=== PATIENT | female | born 1980 | race Caucasian/White ===

== ENCOUNTER 2018-04-10 13:17 | Emergency (ER) | payer SELFPAY ==
[2018-04-10] MEDS ORDERED: Sodium Chloride 0.9% 10 ML Syringe FLUSH PRN (14:04)
[2018-04-10] MEDS ORDERED: Ondansetron 4 MG/2 ML SDV IVPUSH ONE (14:05)
[2018-04-10] MEDS: Prochlorperazine 10 MG/2 ML SDV IV ONE (14:33)
[2018-04-10] MEDS: Lactated Ringers 1,000 ML IV ONE (14:33)
[2018-04-10] MEDS: Ketorolac 15 MG/ML SDV IVPUSH ONE (14:36)
[2018-04-10 15:06] LABS: CHLORIDE,CL 108 mmol/L (98-107); SODIUM,NA 143 mmol/L (136-145)
[2018-04-10 15:10] LABS: ANION GAP 14.6 mmol/L (10-20)
--- NOTE | 2018-04-10 18:37 | EDM.PDOC ---
ED HPI GENERAL MEDICAL PROBLEM - General Chief Complaint: Gastrointestinal Problem Stated Complaint: FEELING SICK Time Seen by Provider: 04/10/18 13:17 Source of Information: Reports: Patient History Limitations: Reports: No Limitations - History of Present Illness INITIAL COMMENTS - FREE TEXT/NARRATIVE: Pt. presents to ER with complaints of nausea, vomiting and diarrhea. She states that the vomiting has improved and she is able to hold down fluids. Pt. states that she has been sick for 1 week. No focal abdominal discomfort. No chest pain or shortness of breath. She has not recently been hospitalized. She has not recently been on antibiotics. No sick contacts. Denies any melena, hematochezia, or hemetemesis. She does complain of headache. No neck stiffness. Onset Date: 04/03/18 Duration: Constant Location: Reports: Abdomen, Generalized - Related Data Allergies Allergy/AdvReac Type Severity Reaction Status Date / Time No Known Allergies Allergy Verified 04/10/18 13:49 Home Meds: Home Meds . [No Known Home Meds] 04/10/18 [History] Past Medical History - Past Health History Medical/Surgical History: Denies Medical/Surgical History Social & Family History - Tobacco Use Smoking Status *Q: Current Every Day Smoker Years of Tobacco use: 16 Packs/Tins Daily: 0.5 - Recreational Drug Use Recreational Drug Use: No ED ROS GENERAL - Review of Systems Review Of Systems: See Below Constitutional: Reports: No Symptoms HEENT: Reports: No Symptoms Respiratory: Reports: No Symptoms Cardiovascular: Reports: No Symptoms Endocrine: Reports: No Symptoms GI/Abdominal: Reports: Anorexia, Diarrhea, Nausea, Vomiting : Reports: No Symptoms Musculoskeletal: Reports: No Symptoms Skin: Reports: No Symptoms Neurological: Reports: No Symptoms Psychiatric: Reports: No Symptoms Hematologic/Lymphatic: Reports: No Symptoms Immunologic: Reports: No Symptoms ED EXAM, GENERAL - Physical Exam Exam: See Below Exam Limited By: No Limitations General Appearance: Alert, WD/WN, No Apparent Distress Eye Exam: Bilateral Eye: EOMI, PERRL Throat/Mouth: Normal Inspection, Normal Lips, Normal Teeth, Normal Gums, Normal Oropharynx, Normal Voice, No Airway Compromise Head: Atraumatic, Normocephalic Neck: Normal Inspection, Supple, Non-Tender, Full Range of Motion Respiratory/Chest: No Respiratory Distress, Lungs Clear, Normal Breath Sounds, No Accessory Muscle Use, Chest Non-Tender Cardiovascular: Normal Peripheral Pulses, Regular Rate, Rhythm, No Edema, No Gallop, No JVD, No Murmur, No Rub Peripheral Pulses: 3+: Radial (L), Radial (R) GI/Abdominal: Normal Bowel Sounds, Soft, Non-Tender, No Organomegaly, No Distention, No Mass (Female) Exam: Deferred Rectal (Female) Exam: Deferred Back Exam: Normal Inspection, Full Range of Motion, NT Extremities: Normal Inspection, Normal Range of Motion, Non-Tender, Normal Capillary Refill, No Pedal Edema Neurological: Alert, Oriented, CN II-XII Intact, Normal Cognition, Normal Gait, Normal Reflexes, No Motor/Sensory Deficits Psychiatric: Normal Affect, Normal Mood Skin Exam: Pallor Course - Vital Signs Last Recorded V/S: Last Vital Signs Temp 36.1 C 04/10/18 13:25 Pulse 75 04/10/18 13:25 Resp 14 04/10/18 13:25 BP 116/73 04/10/18 13:25 Pulse Ox 97 04/10/18 13:25 - Orders/Labs/Meds Orders: Active Orders 24 hr Category Date Time Status Peripheral IV Insertion Adult [OM.PC] Routine Oth 04/10/18 14:05 Ordered Labs: Laboratory Tests 04/10/18 04/10/18 04/10/18 Range/Units 14:15 14:15 14:25 WBC 7.5 (4.0-10.0) x10^3/uL RBC 5.26 (4.00-5.50) x10^6/uL Hgb 12.7 (12.0-16.0) g/dL Hct 40.3 (33.0-47.0) % MCV 76.6 L (78.0-93.0) fL MCH 24.1 L (26.0-32.0) pg MCHC 31.5 L (32.0-36.0) g/dL RDW Coeff of April 16.0 H (10.0-15.0) % Plt Count 282 (130-400) x10^3/uL Neut % (Auto) 55.5 (50.0-80.0) % Lymph % (Auto) 33.2 (25.0-50.0) % [place] % (Auto) 8.7 (2.0-11.0) % Eos % (Auto) 1.9 (0.0-4.0) % Baso % (Auto) 0.7 (0.2-1.2) % PT 11.4 (9.6-11.4) SEC INR 1.1 L (2.0-3.5) Sodium 143 (136-145) mmol/L Potassium 3.6 (3.5-5.1) mmol/L Chloride 108 H (98-107) mmol/L Carbon Dioxide 24 (21-32) mmol/L Anion Gap 14.6 (10-20) mmol/L BUN 10 (7-18) mg/dL Creatinine 0.7 (0.55-1.02) mg/dL Est Cr Clr Drug Dosing TNP Estimated GFR (MDRD) > 60 Glucose 76 (74-106) mg/dL Calcium 9.1 (8.5-10.1) mg/dL Corrected Calcium 9.34 (8.5-10.1) mg/dL Total Bilirubin 0.7 (0.2-1.0) mg/dL AST 18 (15-37) U/L ALT 21 (14-59) U/L Alkaline Phosphatase 112 (46-116) U/L C-Reactive Protein 2.3 H (<=0.9) mg/dL Total Protein 7.9 (6.4-8.2) g/dL Albumin 3.7 (3.4-5.0) g/dL Globulin 4.2 Albumin/Globulin Ratio 0.88 Urine Color (YELLOW) Urine Appearance (CLEAR) Urine pH (5.0-8.0) Ur Specific [place] Urine Protein (NEGATIVE) mg/dL Urine Glucose (UA) (NEGATIVE) mg/dL Urine Ketones (NEGATIVE) mg/dL Urine Occult Blood (NEGATIVE) Urine Nitrite (NEGATIVE) Urine Bilirubin (NEGATIVE) Urine Urobilinogen (0.2) EU/dL Ur Leukocyte Esterase (NEGATIVE) Urine RBC (NOT SEEN) /HPF Urine WBC (NOT SEEN) /HPF Ur Squamous Epith Cells (NEGATIVE) /HPF Amorphous Sediment Urine Bacteria (NEGATIVE) /HPF Urine Mucus (NEGATIVE) /LPF POC Urine HCG, Qual (NEGATIVE) 04/10/18 04/10/18 Range/Units 14:40 14:40 WBC (4.0-10.0) x10^3/uL RBC (4.00-5.50) x10^6/uL Hgb (12.0-16.0) g/dL Hct (33.0-47.0) % MCV (78.0-93.0) fL MCH (26.0-32.0) pg MCHC (32.0-36.0) g/dL RDW Coeff of April (10.0-15.0) % Plt Count (130-400) x10^3/uL Neut % (Auto) (50.0-80.0) % Lymph % (Auto) (25.0-50.0) % [place] % (Auto) (2.0-11.0) % Eos % (Auto) (0.0-4.0) % Baso % (Auto) (0.2-1.2) % PT (9.6-11.4) SEC INR (2.0-3.5) Sodium (136-145) mmol/L Potassium (3.5-5.1) mmol/L Chloride (98-107) mmol/L Carbon Dioxide (21-32) mmol/L Anion Gap (10-20) mmol/L BUN (7-18) mg/dL Creatinine (0.55-1.02) mg/dL Est Cr Clr Drug Dosing Estimated GFR (MDRD) Glucose (74-106) mg/dL Calcium (8.5-10.1) mg/dL Corrected Calcium (8.5-10.1) mg/dL Total Bilirubin (0.2-1.0) mg/dL AST (15-37) U/L ALT (14-59) U/L Alkaline Phosphatase (46-116) U/L C-Reactive Protein (<=0.9) mg/dL Total Protein (6.4-8.2) g/dL Albumin (3.4-5.0) g/dL Globulin Albumin/Globulin Ratio Urine Color Dark yellow H (YELLOW) Urine Appearance Cloudy H (CLEAR) Urine pH 5.5 (5.0-8.0) Ur Specific [place] >=1.030 Urine Protein Negative (NEGATIVE) mg/dL Urine Glucose (UA) Negative (NEGATIVE) mg/dL Urine Ketones Trace H (NEGATIVE) mg/dL Urine Occult Blood Small H (NEGATIVE) Urine Nitrite Negative (NEGATIVE) Urine Bilirubin Negative (NEGATIVE) Urine Urobilinogen 0.2 (0.2) EU/dL Ur Leukocyte Esterase Negative (NEGATIVE) Urine RBC 0-5 (NOT SEEN) /HPF Urine WBC 0-5 (NOT SEEN) /HPF Ur Squamous Epith Cells Moderate H (NEGATIVE) /HPF Amorphous Sediment Few Urine Bacteria Moderate H (NEGATIVE) /HPF Urine Mucus Many H (NEGATIVE) /LPF POC Urine HCG, Qual Negative (NEGATIVE) Meds: Medications Discontinued Medications Generic Name Dose Route Start Last Admin Trade Name Freq PRN Reason Stop Dose Admin Lactated Ringer's 1,000 mls @ 1,000 mls/hr 04/10/18 14:05 04/10/18 14:33 Ringers, Lactated IV 04/10/18 15:04 1,000 mls/hr ONETIME ONE Administration Ketorolac Tromethamine 15 mg 04/10/18 14:06 04/10/18 14:36 Toradol IVPUSH 04/10/18 14:07 15 mg ONETIME ONE Administration Prochlorperazine Edisylate 5 mg 04/10/18 14:06 04/10/18 14:33 Compazine IV 04/10/18 14:07 5 mg ONETIME ONE Administration Sodium Chloride 10 ml 04/10/18 14:04 Saline Flush FLUSH ASDIRECTED PRN Keep Vein Open - Re-Assessments/Exams Free Text/Narrative Re-Assessment/Exam: IV access achieved with great difficulty on 3rd attempt. She was given her Compazine, toradol and approx. 100ml of fluid and the IV infiltrated. Since she was able to hold fluids down, it was not restarted and she will hydrate orally. Departure - Departure Time of Disposition: 15:24 Disposition: Home, Self-Care 01 Clinical Impression: Gastroenteritis - Discharge Information Instructions: Viral Gastroenteritis, Adult, [id number] Referrals: PCP,None [Primary Care Provider] - Forms: ED Department Discharge Additional Instructions: Home to rest. Zofran 4mg ODT 1 tablet every 6 hours as needed for nausea. Only clear liquid for the next 24 hours. Start banana, rice, apples and toast starting tomorrow. Follow-up in clinic in 7-10 days. - My Orders Last 24 Hours: My Active Orders 04/10/18 14:05 Peripheral IV Insertion Adult [OM.PC] Routine - Assessment/Plan Last 24 Hours: My Active Orders 04/10/18 14:05 Peripheral IV Insertion Adult [OM.PC] Routine Plan: Home to rest. Zofran 4mg ODT 1 tablet every 6 hours as needed for nausea. Only clear liquid for the next 24 hours. Start banana, rice, apples and toast starting tomorrow. Follow-up in clinic in 7-10 days. Return to ER if unable to hold down fluids.
== END 2018-04-10 15:24 | disposition home or self-care (01) ==
LOC: VM.ED 13:17
DX: K52.9 Noninfective gastroenteritis and colitis, unspecified (principal); F17.210 Nicotine dependence, cigarettes, uncomplicated
CPT/HCPCS: 36415; 80053; 81001; 81025; 85025; 85610; 86140; 96374; 96375; 99284; J0780; J1885; J7120

== ENCOUNTER 2018-05-13 12:08 | Emergency (ER) | payer BC, OTHER ==
--- NOTE | 2018-05-13 13:22 | CT ---
[id number] CT/CT Head WO IV EXAM: NONCONTRAST HEAD CT INDICATION: Head injury 2 days ago, headache, vertigo and nausea. COMPARISON: None. DISCUSSION: The ventricles and sulci are normal in size and configuration. The bonds and white matter are normal in attenuation. No mass effect or midline shift. No acute hemorrhage or extra-axial fluid collection. No acute territorial infarct is identified. Small volume fluid and focal mucosal thickening in the dependent aspect of both maxillary sinuses. IMPRESSION: 1. No evidence of acute intracranial trauma. Cesar Dunne MD 05/13/18 1972 Thank you for allowing us to participate in the care of your patient.
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
== END 2018-05-13 13:45 | disposition home or self-care (01) ==
LOC: VM.ED 12:08
DX: S06.0X0A Concussion without loss of consciousness, initial encounter (principal); F17.210 Nicotine dependence, cigarettes, uncomplicated; W22.8XXA Striking against or struck by other objects, initial encounter
CPT/HCPCS: 70450; 99283-25

== ENCOUNTER 2018-12-26 02:12 | Emergency (ER) | payer BC ==
--- NOTE | 2018-12-26 02:24 | EDM.PDOC ---
ED HPI GENERAL MEDICAL PROBLEM - General Chief Complaint: Skin Complaint Stated Complaint: itching Time Seen by Provider: 12/26/18 02:22 Source of Information: Reports: Patient, RN, RN Notes Reviewed History Limitations: Reports: No Limitations - History of Present Illness INITIAL COMMENTS - FREE TEXT/NARRATIVE: Patient present to the ED at [facility] concerned about exposure to Shingles. 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 Patient has had the Varicella vaccine was well as chicken pox. She states she has felt itchy all over but no painful lesions. No fevers. No open sores or blisters. Onset: Today - Related Data Allergies Allergy/AdvReac Type Severity Reaction Status Date / Time ivory soap Allergy Itching Uncoded 12/26/18 02:14 Home Meds: Home Meds hydrOXYzine HCl [Atarax] 25 mg PO TID PRN 12/26/18 [History] Past Medical History - Past Health History Medical/Surgical History: Denies Medical/Surgical History Psychiatric History: Reports: Anxiety, Depression - Past Surgical History Female Surgical History: Reports: Section Social & Family History - Tobacco Use Smoking Status *Q: Current Every Day Smoker Years of Tobacco use: 9 Packs/Tins Daily: 0.5 - Recreational Drug Use Recreational Drug Use: No ED ROS GENERAL - Review of Systems Review Of Systems: See Below Constitutional: Denies: Fever, Weakness Respiratory: Denies: Shortness of Breath, Cough Cardiovascular: Denies: Chest Pain, Palpitations Skin: Reports: Pruritis Neurological: Reports: No Symptoms ED EXAM, SKIN/RASH Exam: See Below Exam Limited By: No Limitations General Appearance: Alert, No Apparent Distress Respiratory/Chest: No Respiratory Distress, Lungs Clear, Normal Breath Sounds Cardiovascular: Normal Peripheral Pulses, Regular Rate, Rhythm GI/Abdominal: Normal Bowel Sounds, Soft, Non-Tender Neurological: Alert, Oriented Skin: Warm, Dry, Intact, Normal Color, No Rash Course - Vital Signs Last Recorded V/S: Last Vital Signs Temp 95.6 F 12/26/18 02:12 Pulse 62 12/26/18 02:12 Resp 16 12/26/18 02:12 BP 115/77 12/26/18 02:12 Pulse Ox 100 12/26/18 02:12 Departure - Departure Time of Disposition: 02:32 Disposition: Home, Self-Care 01 Condition: Good Clinical Impression: Physically well but worried - Discharge Information *PRESCRIPTION DRUG MONITORING PROGRAM REVIEWED*: Not Applicable *COPY OF PRESCRIPTION DRUG MONITORING REPORT IN PATIENT RONNA: Not Applicable Instructions: Shingles Forms: ED Department Discharge - Problem List Review Problem List Initiated/Reviewed/Updated: Yes - Assessment/Plan Assessment:: Worried well Plan: Discussed with patient what shingles really is and what to assess for. Patient does not have any risk factors or evidence of current shingles.
== END 2018-12-26 02:37 | disposition home or self-care (01) ==
LOC: VM.ED 02:12
DX: Z71.1 Person with feared health complaint in whom no diagnosis is made (principal); F41.9 Anxiety disorder, unspecified; F32.9 Major depressive disorder, single episode, unspecified; F17.210 Nicotine dependence, cigarettes, uncomplicated; Z79.899 Other long term (current) drug therapy; Z91.048 Other nonmedicinal substance allergy status
CPT/HCPCS: 99282

== ENCOUNTER 2019-03-21 13:45 | Emergency (ER) | payer BC ==
[2019-03-21] MEDS ORDERED: Sodium Chloride 0.9% 10 ML Syringe FLUSH PRN (14:15)
[2019-03-21] MEDS ORDERED: Ondansetron 4 MG/2 ML SDV IVPUSH ONE (14:16)
[2019-03-21] MEDS ORDERED: Sodium Chloride 0.9% 1,000 ML IV ONE (14:16)
[2019-03-21 15:06] LABS: CHLORIDE,CL 106 mmol/L (98-107); SODIUM,NA 144 mmol/L (136-145)
[2019-03-21 15:07] LABS: ANION GAP 16.8 mmol/L (10-20)
[2019-03-21] MEDS ORDERED: Take Home: Ondansetron 4 MG Tab.DIS, 2 Tab Pack PO ONE (15:20)
--- NOTE | 2019-03-22 11:46 | EDM.PDOC ---
ED HPI GENERAL MEDICAL PROBLEM - General Chief Complaint: Gastrointestinal Problem Stated Complaint: NAUSEA Time Seen by Provider: 03/21/19 14:00 Source of Information: Reports: Patient History Limitations: Reports: No Limitations - History of Present Illness INITIAL COMMENTS - FREE TEXT/NARRATIVE: Pt. presents to ER with complaints of nausea and diarrhea for several days. She also complains of abdominal cramping. Denies any blood in her stools. Pt. states that she has been around numerous sick contacts. Pt. denies any chest pain or shortness of breath. Complains of mild lightheadedness. No fever or chills. Denies any flank pain or dysuria. Onset: Today Onset Date: 03/30/19 Associated Symptoms: Reports: Nausea/Vomiting, Other (diarrhea) Lower Abdominal Pain Score (Numeric/FACES): 7 - Related Data Allergies Allergy/AdvReac Type Severity Reaction Status Date / Time ivory soap Allergy Itching Uncoded 03/21/19 16:03 Home Meds: Home Meds hydrOXYzine HCL [Atarax] 25 mg PO TID PRN 12/26/18 [History] Past Medical History - Past Health History Medical/Surgical History: Denies Medical/Surgical History Psychiatric History: Reports: Anxiety, Depression - Past Surgical History Female Surgical History: Reports: Section Social & Family History - Tobacco Use Smoking Status *Q: Current Every Day Smoker Years of Tobacco use: 10 Packs/Tins Daily: 1 - Recreational Drug Use Recreational Drug Use: Yes Drug Use in Last 12 Months: No Recreational Drug Type: Reports: Methamphetamine ED ROS GENERAL - Review of Systems Review Of Systems: See Below Constitutional: Reports: No Symptoms HEENT: Reports: No Symptoms Respiratory: Reports: No Symptoms Cardiovascular: Reports: No Symptoms Endocrine: Reports: No Symptoms GI/Abdominal: Reports: Diarrhea, Nausea, Vomiting. Denies: Abdominal Pain : Reports: No Symptoms Musculoskeletal: Reports: No Symptoms Skin: Reports: No Symptoms Neurological: Reports: No Symptoms Psychiatric: Reports: No Symptoms Hematologic/Lymphatic: Reports: No Symptoms Immunologic: Reports: No Symptoms ED EXAM, GENERAL - Physical Exam Exam: See Below Exam Limited By: No Limitations General Appearance: Alert, WD/WN, No Apparent Distress Eye Exam: Bilateral Eye: EOMI, PERRL Ears: Normal External Exam, Normal Canal, Hearing Grossly Normal, Normal TMs Ear Exam: Bilateral Ear: Auricle Normal, Canal Normal, TM normal Nose: Normal Inspection, Normal Mucosa, No Blood Throat/Mouth: Normal Inspection, Normal Lips, Normal Teeth, Normal Gums, Normal Oropharynx, Normal Voice, No Airway Compromise Head: Atraumatic, Normocephalic Neck: Normal Inspection, Supple, Non-Tender, Full Range of Motion Respiratory/Chest: No Respiratory Distress, Lungs Clear, Normal Breath Sounds, No Accessory Muscle Use, Chest Non-Tender Cardiovascular: Normal Peripheral Pulses, Regular Rate, Rhythm, No Edema, No Gallop, No JVD, No Murmur, No Rub GI/Abdominal: Normal Bowel Sounds, Soft, Non-Tender, No Organomegaly, No Distention, No Abnormal Bruit, No Mass (Female) Exam: Deferred Rectal (Female) Exam: Deferred Back Exam: Normal Inspection, Full Range of Motion. No: CVA Tenderness (L), CVA Tenderness (R) Extremities: Normal Inspection, Normal Range of Motion, No Pedal Edema, Normal Capillary Refill Neurological: Alert, Oriented, CN II-XII Intact, Normal Cognition, Normal Gait, Normal Reflexes, No Motor/Sensory Deficits Psychiatric: Normal Affect, Normal Mood Skin Exam: Warm, Dry, Intact, Normal Color, No Rash Lymphatic: No Adenopathy Course - Vital Signs Last Recorded V/S: Last Vital Signs Temp 36.8 C 03/21/19 14:00 Pulse 75 03/21/19 14:00 Resp 16 03/21/19 14:00 BP 120/61 03/21/19 14:00 Pulse Ox 98 03/21/19 14:00 - Orders/Labs/Meds Labs: Laboratory Tests 03/21/19 03/21/19 03/21/19 Range/Units 14:33 14:33 14:33 WBC 5.8 (4.0-10.0) x10^3/uL RBC 4.72 (4.00-5.50) x10^6/uL Hgb 12.5 (12.0-16.0) g/dL Hct 37.9 (33.0-47.0) % MCV 80.3 D (78.0-93.0) fL MCH 26.5 (26.0-32.0) pg MCHC 33.0 (32.0-36.0) g/dL RDW Coeff of April 13.4 (10.0-15.0) % Plt Count 254 (130-400) x10^3/uL Neut % (Auto) 57.5 (50.0-80.0) % Lymph % (Auto) 32.6 (25.0-50.0) % [place] % (Auto) 7.8 (2.0-11.0) % Eos % (Auto) 1.6 (0.0-4.0) % Baso % (Auto) 0.5 (0.2-1.2) % PT 11.0 (10.0-12.8) SEC INR 1.0 L (2.0-3.5) Sodium 144 (136-145) mmol/L Potassium 3.8 (3.5-5.1) mmol/L Chloride 106 (98-107) mmol/L Carbon Dioxide 25 (21-32) mmol/L Anion Gap 16.8 (10-20) mmol/L BUN 10 (7-18) mg/dL Creatinine 0.6 (0.55-1.02) mg/dL Est Cr Clr Drug Dosing 111.93 mL/min Estimated GFR (MDRD) > 60 Glucose 93 (74-106) mg/dL Calcium 9.2 (8.5-10.1) mg/dL Corrected Calcium 9.52 (8.5-10.1) mg/dL Magnesium 2.1 (1.8-2.4) mg/dL Total Bilirubin 0.3 (0.2-1.0) mg/dL AST 12 L (15-37) U/L ALT 19 (14-59) U/L Alkaline Phosphatase 88 (46-116) U/L C-Reactive Protein 0.7 (<=0.9) mg/dL Total Protein 7.4 (6.4-8.2) g/dL Albumin 3.6 (3.4-5.0) g/dL Globulin 3.8 Albumin/Globulin Ratio 0.95 Urine Color (YELLOW) Urine Appearance (CLEAR) Urine pH (5.0-8.0) Ur Specific [place] Urine Protein (NEGATIVE) mg/dL Urine Glucose (UA) (NEGATIVE) mg/dL Urine Ketones (NEGATIVE) mg/dL Urine Occult Blood (NEGATIVE) Urine Nitrite (NEGATIVE) Urine Bilirubin (NEGATIVE) Urine Urobilinogen (0.2) EU/dL Ur Leukocyte Esterase (NEGATIVE) Urine RBC (NOT SEEN) /HPF Urine WBC (NOT SEEN) /HPF Ur Squamous Epith Cells (NEGATIVE) /HPF Amorphous Sediment Urine Bacteria (NEGATIVE) /HPF Urine Mucus (NEGATIVE) /LPF 03/21/19 Range/Units 14:52 WBC (4.0-10.0) x10^3/uL RBC (4.00-5.50) x10^6/uL Hgb (12.0-16.0) g/dL Hct (33.0-47.0) % MCV (78.0-93.0) fL MCH (26.0-32.0) pg MCHC (32.0-36.0) g/dL RDW Coeff of April (10.0-15.0) % Plt Count (130-400) x10^3/uL Neut % (Auto) (50.0-80.0) % Lymph % (Auto) (25.0-50.0) % [place] % (Auto) (2.0-11.0) % Eos % (Auto) (0.0-4.0) % Baso % (Auto) (0.2-1.2) % PT (10.0-12.8) SEC INR (2.0-3.5) Sodium (136-145) mmol/L Potassium (3.5-5.1) mmol/L Chloride (98-107) mmol/L Carbon Dioxide (21-32) mmol/L Anion Gap (10-20) mmol/L BUN (7-18) mg/dL Creatinine (0.55-1.02) mg/dL Est Cr Clr Drug Dosing mL/min Estimated GFR (MDRD) Glucose (74-106) mg/dL Calcium (8.5-10.1) mg/dL Corrected Calcium (8.5-10.1) mg/dL Magnesium (1.8-2.4) mg/dL Total Bilirubin (0.2-1.0) mg/dL AST (15-37) U/L ALT (14-59) U/L Alkaline Phosphatase (46-116) U/L C-Reactive Protein (<=0.9) mg/dL Total Protein (6.4-8.2) g/dL Albumin (3.4-5.0) g/dL Globulin Albumin/Globulin Ratio Urine Color Yellow (YELLOW) Urine Appearance Slightly cloudy H (CLEAR) Urine pH 5.5 (5.0-8.0) Ur Specific [place] >=1.030 Urine Protein Negative (NEGATIVE) mg/dL Urine Glucose (UA) Negative (NEGATIVE) mg/dL Urine Ketones Negative (NEGATIVE) mg/dL Urine Occult Blood Moderate H (NEGATIVE) Urine Nitrite Negative (NEGATIVE) Urine Bilirubin Negative (NEGATIVE) Urine Urobilinogen 0.2 (0.2) EU/dL Ur Leukocyte Esterase Negative (NEGATIVE) Urine RBC 5-10 H (NOT SEEN) /HPF Urine WBC 0-5 (NOT SEEN) /HPF Ur Squamous Epith Cells Moderate H (NEGATIVE) /HPF Amorphous Sediment Few Urine Bacteria Rare (NEGATIVE) /HPF Urine Mucus Few H (NEGATIVE) /LPF Meds: Medications Discontinued Medications Generic Name Dose Route Start Last Admin Trade Name Freq PRN Reason Stop Dose Admin Sodium Chloride 1,000 mls @ 1,000 mls/hr 03/21/19 14:16 03/21/19 14:48 Normal Saline IV 03/21/19 15:15 1,000 mls/hr .BOLUS ONE Administration Ondansetron HCl 4 mg 03/21/19 14:16 03/21/19 14:49 Zofran IVPUSH 03/21/19 14:17 4 mg ONETIME ONE Administration Ondansetron HCl 2 packet 03/21/19 15:20 03/21/19 15:48 Take Home: Ondansetron Odt 4 Mg, 2 Tab Pack PO 03/21/19 15:21 2 packet ONETIME ONE Administration Sodium Chloride 10 ml 03/21/19 14:15 Saline Flush FLUSH ASDIRECTED PRN Keep Vein Open Departure - Departure Time of Disposition: 16:00 Disposition: Home, Self-Care 01 Condition: Good Clinical Impression: Gastroenteritis - Discharge Information Instructions: Loperamide tablets or capsules, Ondansetron tablets, Viral Gastroenteritis, Adult, [id number] Referrals: Bladimir Schaeffer NP [Primary Care Provider] - Forms: ED Department Discharge Additional Instructions: Home to rest. Zofran 4mg ODT 1 tab every 4-6 hours as needed for nausea/vomiting Loperamide (immodium) 1 tab every 4-6 hours for diarrhea. Drink only clear liquids until tomorrow at noon, then you can start eating bland foods like bananas, toast, apples, rice, etc. Off of work until asymptomatic for 24 hours. Sepsis Event Note - Evaluation Sepsis Screening Result: No Definite Risk - Focused Exam Date Exam was Performed: 03/30/19 Time Exam was Performed: 05:56 - Assessment/Plan Plan: Home to rest. Zofran 4mg ODT 1 tab every 4-6 hours as needed for nausea/vomiting Loperamide (immodium) 1 tab every 4-6 hours for diarrhea. Drink only clear liquids until tomorrow at noon, then you can start eating bland foods like bananas, toast, apples, rice, etc. Off of work until asymptomatic for 24 hours.
== END 2019-03-21 16:00 | disposition home or self-care (01) ==
LOC: VM.ED 13:45
DX: K52.9 Noninfective gastroenteritis and colitis, unspecified (principal); F17.210 Nicotine dependence, cigarettes, uncomplicated; Z91.09 Other allergy status, other than to drugs and biological substances
CPT/HCPCS: 36415; 80053; 81001; 83735; 85025; 85610; 86140; 96361; 96374; 99284; A9270; J2405; J7030

== ENCOUNTER 2019-12-16 13:44 | Emergency (ER) | payer OTHER ==
[2019-12-16] MEDS ORDERED: Sodium Chloride 0.9% 10 ML Syringe FLUSH PRN (13:56)
[2019-12-16] MEDS ORDERED: Sodium Chloride 0.9% 1,000 ML IV ONE (14:31)
[2019-12-16] MEDS ORDERED: Ondansetron 4 MG/2 ML SDV IVPUSH ONE (14:31)
[2019-12-16] MEDS ORDERED: fentaNYL 100 MCG/2 ML SDV IVPUSH ONE (14:31)
--- NOTE | 2019-12-16 14:38 | EDM.PDOC ---
ED HPI GENERAL MEDICAL PROBLEM - General Chief Complaint: Gastrointestinal Problem Stated Complaint: DIARRHEA,SORE THROAT Time Seen by Provider: 12/16/19 13:56 - History of Present Illness INITIAL COMMENTS - FREE TEXT/NARRATIVE: Gloria is a 39 y/o female who comes to the ER today with epigastic and midsternal chest pain. She also reports being very nauseated and she has vomited 5 times today along with several diarrhea stools. She reports that she first felt ill on Saturday and went to the [facility] on Saturday and was given Omeprazole and Zofran. She denies that they have helped any of her sx. She rates her pain 8/10 and points to the midsternal chest region as being the worst. "I feel like my chest and stomach are being ripped out and this is worse than labor." When she was first ill she did have some nasal congestion and URI sx, but that has seemed to resolve. She was COVID tested on the 12/08 and it was negative. Abdominal Pain Score (Numeric/FACES): 9 - Related Data Allergies Allergy/AdvReac Type Severity Reaction Status Date / Time ivory soap Allergy Itching Uncoded 12/16/19 14:04 Home Meds: Home Meds hydrOXYzine HCL [Atarax] 25 mg PO TID PRN 12/26/18 [History] Ondansetron [Zofran] 4 mg PO Q8H PRN 12/16/19 [History] Pantoprazole Sodium [Protonix] 40 mg PO DAILY 12/16/19 [History] Past Medical History - Past Health History Medical/Surgical History: Denies Medical/Surgical History Psychiatric History: Reports: Anxiety, Depression - Past Surgical History Female Surgical History: Reports: Section Social & Family History - Tobacco Use Smoking Status *Q: Current Every Day Smoker Years of Tobacco use: 20 Packs/Tins Daily: 1 Review of Systems - Review of Systems Review Of Systems: See Below Constitutional: Reports: Weakness Eyes: Reports: No Symptoms Ears: Reports: No Symptoms Nose: Reports: Congestion Mouth/Throat: Reports: Other (Sore Throat) Respiratory: Reports: No Symptoms Cardiovascular: Reports: Chest Pain GI/Abdominal: Reports: Abdominal Pain, Decreased Appetite, Diarrhea, Nausea, Vomiting Genitourinary: Reports: No Symptoms Musculoskeletal: Reports: No Symptoms Skin: Reports: No Symptoms Neurological: Reports: Headache Psychiatric: Reports: No Symptoms ED EXAM, GENERAL - Physical Exam Exam: See Below General Appearance: Alert, WD/WN (Adult female, appears to not feel well) Eye Exam: Bilateral Eye: PERRL Ears: Normal External Exam, Normal Canal, Hearing Grossly Normal, Normal TMs Nose: Normal Inspection Throat/Mouth: Normal Inspection, Normal Lips, Normal Teeth, Normal Voice, No Airway Compromise Head: Atraumatic, Normocephalic Neck: Normal Inspection, Supple Respiratory/Chest: No Respiratory Distress, Lungs Clear, Other (+Reproducible pain in the midsternal region) Cardiovascular: Normal Peripheral Pulses, Regular Rate, Rhythm, No Murmur GI/Abdominal: Normal Bowel Sounds, Soft, Tender (+tender in the epigastric and RUQ region) (Female) Exam: Deferred Rectal (Female) Exam: Deferred Back Exam: CVA Tenderness (R) (mild) Extremities: Normal Inspection, Normal Range of Motion, Normal Capillary Refill Neurological: Alert, Oriented, CN II-XII Intact, Normal Cognition, Normal Gait, No Motor/Sensory Deficits Psychiatric: Normal Affect, Normal Mood Skin Exam: Warm, Dry, Intact, Normal Color Lymphatic: No Adenopathy EKG INTERPRETATION EKG Date: 12/16/19 Time: 14:30 Rhythm: NSR Rate (Beats/Min): 63 [place]: Normal P-Wave: Present QRS: Normal ST-T: Normal QT: Normal Course - Vital Signs Text/Narrative:: 1356 The patient was seen by the [employer]. COVID test ordered initially and was negative. Additional labs adn EKG ordered. She was given a liter of NS, Fentanyl 100mcg IVP, and Zofran 4 mg IVP. 1505 Labs reviewed, CBC neg, CMP neg, UA trace blood-intact otherwise negative. 1640 Still having mild epigastric pain, but able to rest. Declines GI cocktail when offered. CT reviewed, no renal calculi noted, possible colitis (See Radiology report). Will have patient go home and resume Zofran and Protonix as prescribed by her PCP then have her follow up in clinic for further testing and referrals. Discharge instructions were given and the patient left the ER in stable condition. Last Recorded V/S: Last Vital Signs Temp 36.7 C 12/16/19 13:50 Pulse 76 09/16/20 13:50 Resp 18 12/16/19 13:50 BP 117/68 12/16/19 13:50 Pulse Ox 98 12/16/19 13:50 - Orders/Labs/Meds Orders: Active Orders 24 hr Category Date Time Status EKG Documentation Completion [RC] STAT Care 12/16/19 14:32 Active Sodium Chloride 0.9% [Saline Flush] Med 12/16/19 13:56 Active 10 ml FLUSH ASDIRECTED PRN Saline Lock Insert [OM.PC] Stat Oth 12/16/19 13:57 Ordered Medication Orders Sodium Chloride (Saline Flush) 10 ml FLUSH ASDIRECTED PRN PRN Reason: Keep Vein Open Labs: Laboratory Tests 12/16/19 12/16/19 12/16/19 Range/Units 13:56 14:23 14:23 WBC 7.2 (4.0-10.0) x10^3/uL RBC 4.95 (4.00-5.50) x10^6/uL Hgb 13.0 (12.0-16.0) g/dL Hct 39.4 (33.0-47.0) % MCV 79.6 (78.0-93.0) fL MCH 26.3 (26.0-32.0) pg MCHC 33.0 (32.0-36.0) g/dL RDW Coeff of April 14.6 (10.0-15.0) % Plt Count 303 (130-400) x10^3/uL Neut % (Auto) 67.4 (50.0-80.0) % Lymph % (Auto) 26.6 (25.0-50.0) % [place] % (Auto) 4.8 (2.0-11.0) % Eos % (Auto) 0.8 (0.0-4.0) % Baso % (Auto) 0.4 (0.2-1.2) % Sodium 140 (136-145) mmol/L Potassium 4.2 (3.5-5.1) mmol/L Chloride 103 (98-107) mmol/L Carbon Dioxide 29 (21-32) mmol/L Anion Gap 12.2 (10-20) mmol/L BUN 12 (7-18) mg/dL Creatinine 0.7 (0.55-1.02) mg/dL Est Cr Clr Drug Dosing TNP Estimated GFR (MDRD) > 60 Glucose 94 (74-106) mg/dL Calcium 9.2 (8.5-10.1) mg/dL Corrected Calcium 9.12 (8.5-10.1) mg/dL Magnesium 2.0 (1.8-2.4) mg/dL Total Bilirubin 0.4 (0.2-1.0) mg/dL AST 12 L (15-37) U/L ALT 23 (14-59) U/L Alkaline Phosphatase 87 (46-116) U/L Troponin I (<=0.056) ng/mL Total Protein 8.4 H (6.4-8.2) g/dL Albumin 4.1 (3.4-5.0) g/dL Globulin 4.3 Albumin/Globulin Ratio 0.95 Amylase 42 (25-115) U/L Lipase 109 (73-393) U/L Urine Color (YELLOW) Urine Appearance (CLEAR) Urine pH (5.0-8.0) Ur Specific [place] Urine Protein (NEGATIVE) mg/dL Urine Glucose (UA) (NEGATIVE) mg/dL Urine Ketones (NEGATIVE) mg/dL Urine Occult Blood (NEGATIVE) Urine Nitrite (NEGATIVE) Urine Bilirubin (NEGATIVE) Urine Urobilinogen (0.2) EU/dL Ur Leukocyte Esterase (NEGATIVE) Urine RBC (NOT SEEN) /HPF Urine WBC (NOT SEEN) /HPF Ur Squamous Epith Cells (NEGATIVE) /HPF Urine Bacteria (NEGATIVE) /HPF Urine Mucus (NEGATIVE) /LPF Urine HCG, Qual (NEGATIVE) SARS CoV-2 RNA Rapid ROSY Negative (NEGATIVE) 12/16/19 12/16/19 12/16/19 Range/Units 14:23 14:39 14:39 WBC (4.0-10.0) x10^3/uL RBC (4.00-5.50) x10^6/uL Hgb (12.0-16.0) g/dL Hct (33.0-47.0) % MCV (78.0-93.0) fL MCH (26.0-32.0) pg MCHC (32.0-36.0) g/dL RDW Coeff of April (10.0-15.0) % Plt Count (130-400) x10^3/uL Neut % (Auto) (50.0-80.0) % Lymph % (Auto) (25.0-50.0) % [place] % (Auto) (2.0-11.0) % Eos % (Auto) (0.0-4.0) % Baso % (Auto) (0.2-1.2) % Sodium (136-145) mmol/L Potassium (3.5-5.1) mmol/L Chloride (98-107) mmol/L Carbon Dioxide (21-32) mmol/L Anion Gap (10-20) mmol/L BUN (7-18) mg/dL Creatinine (0.55-1.02) mg/dL Est Cr Clr Drug Dosing Estimated GFR (MDRD) Glucose (74-106) mg/dL Calcium (8.5-10.1) mg/dL Corrected Calcium (8.5-10.1) mg/dL Magnesium (1.8-2.4) mg/dL Total Bilirubin (0.2-1.0) mg/dL AST (15-37) U/L ALT (14-59) U/L Alkaline Phosphatase (46-116) U/L Troponin I < 0.017 (<=0.056) ng/mL Total Protein (6.4-8.2) g/dL Albumin (3.4-5.0) g/dL Globulin Albumin/Globulin Ratio Amylase (25-115) U/L Lipase (73-393) U/L Urine Color Light yellow (YELLOW) Urine Appearance Slightly cloudy H (CLEAR) Urine pH 7.5 (5.0-8.0) Ur Specific [place] 1.025 Urine Protein Negative (NEGATIVE) mg/dL Urine Glucose (UA) Negative (NEGATIVE) mg/dL Urine Ketones Negative (NEGATIVE) mg/dL Urine Occult Blood Trace-intact H (NEGATIVE) Urine Nitrite Negative (NEGATIVE) Urine Bilirubin Negative (NEGATIVE) Urine Urobilinogen 0.2 (0.2) EU/dL Ur Leukocyte Esterase Negative (NEGATIVE) Urine RBC 5-10 H (NOT SEEN) /HPF Urine WBC 0-5 (NOT SEEN) /HPF Ur Squamous Epith Cells Occasional H (NEGATIVE) /HPF Urine Bacteria Few H (NEGATIVE) /HPF Urine Mucus Rare H (NEGATIVE) /LPF Urine HCG, Qual Negative (NEGATIVE) SARS CoV-2 RNA Rapid ROSY (NEGATIVE) Meds: Medications Generic Name Dose Route Start Last Admin Trade Name Sofi PRN Reason Stop Dose Admin Sodium Chloride 10 ml 12/16/19 13:56 Saline Flush FLUSH ASDIRECTED PRN Keep Vein Open Discontinued Medications Generic Name Dose Route Start Last Admin Trade Name Sofi PRN Reason Stop Dose Admin Fentanyl 100 mcg 12/16/19 14:31 12/16/19 15:35 Sublimaze IVPUSH 12/16/19 14:32 100 mcg ONETIME ONE Administration Sodium Chloride 1,000 mls @ 999 mls/hr 12/16/19 14:31 12/16/19 15:33 Normal Saline IV 12/16/19 15:31 999 mls/hr ONETIME ONE Administration Ondansetron HCl 4 mg 12/16/19 14:31 12/16/19 15:33 Zofran IVPUSH 12/16/19 14:32 4 mg ONETIME ONE Administration Departure - Departure Time of Disposition: 16:54 Disposition: Home, Self-Care 01 Condition: Good Clinical Impression: Epigastric abdominal pain Nausea & vomiting Qualifiers: Vomiting type: unspecified Diarrhea Qualifiers: Diarrhea type: unspecified type Qualified Code(s): R19.7 - Diarrhea, unspecified - Discharge Information Instructions: Nausea and Vomiting, Adult, Diarrhea, Adult Referrals: Bladimir Schaeffer NP [Primary Care Provider] - Forms: ED Department Discharge Additional Instructions: -Resume the Protonix and Zofran as prescribed by your PCP -Make an appt to see your PCP to discuss further diagnostic options including possibly H Pylori testing or a GI Consult -Diet as tolerated -Return to ER as needed -Make the follow up PCP brandon tin the next 2-3 days Sepsis Event Note (ED) - Evaluation Sepsis Screening Result: No Definite Risk - Focused Exam Vital Signs: Vital Signs Temp Pulse Resp BP Pulse Ox 12/16/19 13:50 36.7 C 76 18 117/68 98 - My Orders Last 24 Hours: My Active Orders 12/16/19 13:56 Sodium Chloride 0.9% [Saline Flush] 10 ml FLUSH ASDIRECTED PRN 12/16/19 13:57 Saline Lock Insert [OM.PC] Stat 12/16/19 14:32 EKG Documentation Completion [RC] STAT - Assessment/Plan Last 24 Hours: My Active Orders 12/16/19 13:56 Sodium Chloride 0.9% [Saline Flush] 10 ml FLUSH ASDIRECTED PRN 12/16/19 13:57 Saline Lock Insert [OM.PC] Stat 12/16/19 14:32 EKG Documentation Completion [RC] STAT Assessment:: 1)Nausea/Vomiting 2)Diarrhea Plan: -Continue Protonix/Zofran as prescribed -Labs and CT are negative in the ER -FU with PCP for further testing
[2019-12-16 14:53] LABS: CHLORIDE,CL 103 mmol/L (98-107); SODIUM,NA 140 mmol/L (136-145)
[2019-12-16 14:54] LABS: ANION GAP 12.2 mmol/L (10-20)
--- NOTE | 2019-12-16 16:50 | CT ---
[id number] CT/CT Renal Stone Protocol EXAM: RENAL STONE PROTOCOL ABDOMEN CT INDICATION: Signs and symptoms of renal calculi. COMPARISON: None. DISCUSSION: A thick-walled appearance of the colon from the cecum through the splenic flexure of the colon could be from incomplete distention or mild colitis. The small and large bowel are otherwise normal in appearance. No renal/ureteral calculus or hydronephrosis on either side. Unenhanced images of the liver, gallbladder, spleen, pancreas, adrenal glands or free fluid. Possible bicornuate uterus. Bilateral tubal ligation. The osseous structures are unremarkable. IMPRESSION: 1. No renal calculi or hydronephrosis. 2. A thick-walled appearance of the colon from the cecum to the splenic flexure could be from incomplete distention or mild colitis. Cesar Dunne MD 12/16/19 1592 Thank you for allowing us to participate in the care of your patient.
== END 2019-12-16 17:03 | disposition home or self-care (01) ==
LOC: VM.ED 13:44
DX: R10.13 Epigastric pain (principal); R11.2 Nausea with vomiting, unspecified; R19.7 Diarrhea, unspecified; F17.210 Nicotine dependence, cigarettes, uncomplicated; Z79.899 Other long term (current) drug therapy; Z91.048 Other nonmedicinal substance allergy status; Z20.828 Contact with and (suspected) exposure to other viral communicable diseases
CPT/HCPCS: 36415; 74176; 80053; 81001; 81025; 82150; 83690; 83735; 84484; 85025; 87635; 93005; 93010; 96361; 96374; 96375; 99284; 99285; J2405; J3010; J7030; U0002

== ENCOUNTER 2022-06-14 12:03 | Emergency (ER) | payer OTHER ==
[2022-06-14] MEDS ORDERED: Sodium Chloride 0.9% 10 ML Syringe FLUSH PRN (12:26)
[2022-06-14 13:15] LABS: CHLORIDE,CL 106 mmol/L (98-107); SODIUM,NA 141 mmol/L (136-145)
[2022-06-14 13:16] LABS: ANION GAP 13.7 mmol/L (5-15); ESTIMATED GFR 112 mL/min (>=60)
[2022-06-14] MEDS: Iopamidol 612 MG/ML 100 ML Bottle IVPUSH ONE (14:27)
== END 2022-06-14 15:30 | disposition home or self-care (01) ==
LOC: VM.ED 12:03
DX: N83.201 Unspecified ovarian cyst, right side (principal); N83.202 Unspecified ovarian cyst, left side; Z91.048 Other nonmedicinal substance allergy status; Z90.710 Acquired absence of both cervix and uterus; Z90.722 Acquired absence of ovaries, bilateral; Z98.890 Other specified postprocedural states
CPT/HCPCS: 36000; 36415; 74177; 80053; 81001; 85025; 86140; 99284; Q9967